=== PATIENT | female | born 1970 | race Hispanic/Latino ===

== ENCOUNTER 2020-05-04 10:35 | Observation (INO) | payer BC, OTHER ==
[2020-05-04 11:20] LABS: #Eosinphils 0.1 thou/uL (0.0-0.7); #Lymphocytes 1.4 thou/uL (1.20-3.40); #Monocytes 0.7 thou/uL (0.11-0.59); #Neutrophils 8.7 thou/uL (1.40-6.50); %Basophils 0.1 % (0.0-1.0); %Eosinophils 0.6 % (0.0-10.0); %Monocytes 6.4 % (0.0-10.0); %Neutrophils 79.9 % (42.0-75.0); Hemoglobin 15.3 g/dL (12.0-16.0); Mean Corpuscular HGB CONC 34.8 g/dL (32.0-36.0); Mean Corpuscular Hemoglobin 31.6 pg (27.0-31.0); Mean Platelet Volume 7.5 fL (7.4-10.4); Platelet Count 298 thou/uL (130-400); RBC Distribution Width 11.8 % (11.5-14.5); Red Blood Cell (RBC) Count 4.83 mill/uL (4.20-5.40); White Blood Cell (WBC) Count 10.9 thou/uL (4.8-10.8)
[2020-05-04 11:48] LABS: ALT (SGPT) 14 U/L (8-55); AST (SGOT) 12 U/L (5-34); Albumin 4.2 g/dL (3.5-5.0); Alkaline Phosphatase 81 U/L (40-110); Anion Gap 12 mmol/L (10-20); BUN (Urea Nitrogen) 8 mg/dL (9.8-20.1); Bilirubin, Total 0.7 mg/dL (0.2-1.2); Calc. Creatinine Clearance 0 mL/min (70-130); Calcium 9.2 mg/dL (7.8-10.44); Carbon Dioxide 26 mmol/L (22-29); Chloride 103 mmol/L (98-107); Estimated GFR-MDRD Greater than 90; Globulin 4.1 g/dL (2.4-3.5); Glucose 133 mg/dL (70-105); Lipase 10 U/L (8-78); Potassium 3.6 mmol/L (3.5-5.1); Protein, Total 8.3 g/dL (6.0-8.3); Sodium 137 mmol/L (136-145)
--- NOTE | 2020-05-04 11:51 | ULT ---
RIGHT UPPER QUADRANT ULTRASOUND CLINICAL HISTORY: Right upper quadrant pain for 2 days. COMPARISON: None FINDINGS: Liver:There is diffuse fatty liver. No focal lesion is demonstrated. Intrahepatic bile ducts: No intrahepatic or extrahepatic biliary dilation.; Common bile duct: 3.3 mm. Gallbladder: The gallbladder is distended with multiple stones in gallbladder sludge. No pericholecys tic fluid is evident. The gallbladder wall is mildly thickened. Mclain's sign:None Main portal vein:Patent with hepatopedal flow. Pancreas:Visualized pancreas appears normal. Right kidney: Right kidney measures 9.2 x 5.7 x 6.0 cm. No focal renal lesion or hydronephrosis. Additional findings: None. IMPRESSION: 1. Gallbladder distention with multiple stones and gallbladder wall thickening. No pericholecystic fl uid or sonographic Mclain sign is reported. Findings are equivocal by sonography for acute cholecystitis. If clinically indicated further evaluation with a HIDA scan may be helpful for evaluat ing cystic duct obstruction. 2. Fatty liver.
[2020-05-04] MEDS ORDERED: Ondansetron PF 4 MG/2 ML Vial ONE (11:54)
[2020-05-04 13:14] LABS: Bilirubin Negative (Negative); Blood, Urine Negative (Negative); Clarity Clear (Clear); Glucose, Urine (Dipstick) Normal (Negative); Ketone, Urine Trace mg/dL (Negative); Leukocyte Negative Leu/uL (Negative); Nitrite Negative (Negative); Protein, Urine (Dipstick) Negative (Neg-Trace); Specific Gravity, Urine 1.009 (1.002-1.036); Urobilinogen Normal mg/dL (Less than 2)
[2020-05-04 13:16] LABS: Pregnancy Test - Urine (BHCG) Negative (Negative); Pregu Control Background? CLEAR/WHITE (CLR/WHITE); Pregu Control Bar Appear? YES (CONTROL BAR); Specific Gravity 1.009 (1.002-1.036)
[2020-05-04] MEDS ORDERED: Morphine 2 MG/ML VIAL ONE (15:14)
--- NOTE | 2020-05-04 16:07 | NM ---
HEPATOBILIARY SCAN: HISTORY:Right upper quadrant abdominal pain. RADIOPHARMACEUTICAL: 4.7 mCi Technetium 99m Mebrofenin injected intravenously; patient was penetrated with 1.5 mcg of CCK IV 30 minutes prior to injection of radiopharmaceutical. Following one hour of imaging, the patient received 2 mg of IV morphine sulfate. An additional 30 minutes were acquired. FINDINGS: There is expected radiotracer accumulation within the liver from the blood pool with excretion of rad iotracer into the common bile duct and small bowel by 10 minutes. There is nonvisualization of the gallbladder by the 60 minute time obed. The patient was administered 2 mg of IV morphine an additiona l 30 minutes of imaging was performed. There is no visualization of the gallbladder at the completion of the 30 minute post morphine exam. IMPRESSION:Nonvisualization of the gallbladder is suspicious for acute cholecystitis. Findings called to Kimberly Garcia, family nurse practitioner at 4:00 PM on May 04, 2020.
[2020-05-04] MEDS ORDERED: Calcium Carbonate 500 MG ChewTAB PO PRN (19:52)
[2020-05-04] MEDS ORDERED: Dextrose 50% Abboject 50 ML SYRINGE SLOW IVP PRN (19:52)
[2020-05-04] MEDS ORDERED: Morphine 2 MG/ML VIAL SLOW IVP PRN (19:52)
[2020-05-04] MEDS ORDERED: hydrALAZINE 20 MG/ML VIAL SLOW IVP PRN (19:52)
[2020-05-04] MEDS ORDERED: Morphine 4 MG/ML VIAL SLOW IVP PRN (19:52)
[2020-05-04] MEDS ORDERED: Dextrose 5% in Water 1,000 ML IV PRN (19:52)
[2020-05-04] MEDS ORDERED: Ketorolac Tromethamine 30 MG/ML VIAL IVP PRN (19:52)
[2020-05-04] MEDS ORDERED: Promethazine HCl 25 MG/ML VIAL IM PRN (19:52)
[2020-05-04] MEDS ORDERED: Mag-Al 1200 mg/1200 mg/30 ML UDCUP PO PRN (19:52)
[2020-05-04 20:05] VITALS: BMI 30.7
[2020-05-04] MEDS: D5 1/2 NS w/20 mEq KCL 1,000 ML IV SCH (20:34)
[2020-05-04] MEDS: Famotidine/PF 20 mg/2ml Vial SLOW IVP SCH (20:34)
[2020-05-04] MEDS: Famotidine 20 MG TAB PO SCH (20:34)
[2020-05-04] MEDS: HYDROcodone/Acetaminophen 10/325 mg Tablet PO PRN (20:41)
[2020-05-05] MEDS: Ondansetron PF 4 MG/2 ML Vial IVP PRN ×2 (04:24→18:29)
[2020-05-05] MEDS: HYDROcodone/Acetaminophen 10/325 mg Tablet PO PRN (04:24)
[2020-05-05] MEDS: D5 1/2 NS w/20 mEq KCL 1,000 ML IV SCH ×3 (04:27→18:33)
[2020-05-05 07:36] LABS: SARS-CoV-2 NAA Rapid Test Not Detected (NotDetected)
[2020-05-05] MEDS: Famotidine/PF 20 mg/2ml Vial SLOW IVP SCH ×2 (08:06→21:19)
[2020-05-05] MEDS: Famotidine 20 MG TAB PO SCH ×2 (08:08→21:19)
[2020-05-05] MEDS ORDERED: Succinylcholine Chloride 20 MG/ML 10 ml SYRINGE FS ONE (10:34)
[2020-05-05] MEDS ORDERED: Rocuronium Bromide 10 MG/ML (10ML VIAL) ONE (10:34)
[2020-05-05] MEDS ORDERED: Glycopyrrolate 0.2 MG/ML 5 ML SYRINGE ONE (10:34)
[2020-05-05] MEDS ORDERED: PROPOFOL 200 MG/20 ML VIAL ONE (10:34)
[2020-05-05] MEDS ORDERED: Lidocaine 1% PF 5 ML VIAL ONE (10:34)
[2020-05-05] MEDS ORDERED: Ondansetron PF 4 MG/2 ML Vial ONE (10:34)
[2020-05-05] MEDS ORDERED: EPHEDRINE 25 MG/5 ML SYRINGE ONE (10:34)
[2020-05-05] MEDS ORDERED: Dexamethasone 20 MG/5 ML VIAL ONE (10:34)
[2020-05-05] MEDS ORDERED: Ondansetron HCl/PF 4 MG/2 ML Vial IVP PRN (12:18)
[2020-05-05] MEDS ORDERED: Meperidine HCl/PF 25 MG/ML VIAL SLOW IVP PRN (12:18)
[2020-05-05] MEDS ORDERED: Promethazine HCl 25 MG/ML VIAL IM PRN (12:18)
[2020-05-05] MEDS ORDERED: Promethazine HCl 25 MG/ML VIAL SLOW IVP PRN (12:18)
[2020-05-05] MEDS ORDERED: SUGAMMADEX SODIUM 200 MG/2 ML VIAL ONE (12:43)
[2020-05-05] MEDS ORDERED: Fentanyl 100 MCG/2 ML VIAL ONE (12:43)
[2020-05-05] MEDS ORDERED: Lidocaine 1% w/Epinephrine 1:100K 20 ML VIAL ONE (12:44)
[2020-05-05] MEDS ORDERED: Bupivacaine 0.25% HCL 30 ML VIAL ONE (12:44)
[2020-05-05] MEDS ORDERED: cefOXitin Sodium/Dextrose 2 GM/50 ML BAG ONE (12:54)
[2020-05-05] MEDS ORDERED: Famotidine/PF 20 mg/2ml Vial ONE (12:59)
[2020-05-05] MEDS ORDERED: Morphine 4 MG/ML VIAL ONE (14:54)
[2020-05-05] MEDS ORDERED: HYDROcodone/Acetaminophen 7.5/325 mg Tablet PO PRN (16:08)
--- NOTE | 2020-05-05 19:15 | OP ---
DATE OF PROCEDURE: 05/05/2020 PREOPERATIVE DIAGNOSIS: Acute cholecystitis. POSTOPERATIVE DIAGNOSIS: Acute cholecystitis. PROCEDURE PERFORMED: Laparoscopic cholecystectomy. ANESTHESIA: General. ESTIMATED BLOOD LOSS: Minimal. COMPLICATIONS: None. SPECIMEN: Gallbladder. FINDINGS: Acute cholecystitis. TECHNIQUE: The patient was taken to the operating room and laid supine on the operating room table. After general anesthetic was obtained, the abdomen was prepped and draped in a sterile fashion. A straight incision was made above the umbilicus. Cautery was used to dissect down to and score the fascia. Abdominal cavity was entered bluntly using a Earlene clamp. Holding stitch of PDS placed on each side of fascia. A Rola trocar was placed and high-flow pneumoperitoneum was obtained. Upper midline 5 mm port as well as two right upper quadrant 5 mm ports were placed under direct visualization. The patient had acute cholecystitis with distended gallbladder. The needle was used to decompress the gallbladder. This allowed it to be grasped by the right upper quadrant port site, and placed up over the liver. The peritoneum was taken down. There was a lot of adhesions of omentum to the lower gallbladder that were taken down using cautery. Dissection in the area of the cystic duct and cystic artery allowed delineation of these structures. The critical view was seen showing only the cystic duct and cystic artery branching medial to lateral. There were no other branching structures. Two clips were placed proximally on the cystic duct and one laterally. It was cut using laparoscopic scissors. Cystic artery was taken in the same way. Cautery was then used to dissect the gallbladder out of the gallbladder fossa. The gallbladder was placed in EndoCatch bag and brought out through the Rola. Due to the intense inflammatory reaction from the acute cholecystitis, there was some bleeding in the liver bed. This was controlled using cautery. Arline anti-bleeding starch was placed in the gallbladder bed using the laparoscopic applicators. All port sites were infiltrated using local anesthetic. All ports were removed under camera visualization. Pneumoperitoneum was let down. PDS was used to close the fascial defect below the umbilicus. All incisions were irrigated and closed using 4-0 Monocryl and Dermabond. The patient was en route to Recovery in stable condition. All instrument counts, needle counts, and lap counts were correct. Job ID: [id number]
--- NOTE | 2020-05-06 05:01 | HP ---
CHIEF COMPLAINT: Acute cholecystitis. HISTORY OF PRESENT ILLNESS: This is a 49-year-old female with a history of intermittent biliary colic. She has known previously she had gallstones. She was seen in the emergency department where ultrasound revealed gallstones, but no acute cholecystitis symptoms. She had intractable pain. A hepatobiliary scan was performed, which showed no uptake into the gallbladder. She is admitted to my service overnight. The patient notes that her pain is slightly improved this evening, associated with nausea, but no vomiting. No previous known history of gallstones, jaundice, or pancreatitis. PAST MEDICAL HISTORY: She denies. PAST SURGICAL HISTORY: Includes hip. MEDICATIONS: None. ALLERGIES: NO KNOWN DRUG ALLERGIES. SOCIAL HISTORY: No smoking or alcohol or other drugs. REVIEW OF SYSTEMS: Ten-system review of systems is otherwise negative unless described above. PHYSICAL EXAMINATION: HEENT: Sclerae are anicteric. Oropharynx clear. NECK: No lymphadenopathy. CHEST: Clear. HEART: Regular rate. ABDOMEN: Soft. Tender in the right upper quadrant with localized guarding without rebound. No abdominal or inguinal hernias. EXTREMITIES: No ischemia or edema to extremities. LABORATORY DATA: Liver function tests normal. Ultrasound, gallstones with normal common bile duct. Hepatobiliary scan, no uptake in the gallbladder. ASSESSMENT: Acute cholecystitis secondary to gallstones. PLAN: Laparoscopic cholecystectomy. Risks, benefits, and alternatives discussed. She gives consent. We will do this tomorrow. Job ID: [id number]
[2020-05-06 08:06] LABS: Hemoglobin 15.1 g/dL (12.0-16.0)
[2020-05-06] MEDS: Famotidine 20 MG TAB PO SCH (08:09)
[2020-05-06] MEDS: Famotidine/PF 20 mg/2ml Vial SLOW IVP SCH (08:11)
[2020-05-06] MEDS: D5 1/2 NS w/20 mEq KCL 1,000 ML IV SCH (10:00)
--- NOTE | 2020-05-06 10:19 | PDOC.GSPN ---
Surgery Progress Note: Subj - Subjective Narrative: Ms. Waddell is a 49 year old female who is post op day 1 from a cholecystectomy for acute cholecystitis secondary to known gallstones. She reports some mild abdominal soreness, rated at 3/10. She denies any nausea, vomiting, diarrhea, dysuria, fever, chills, shortness of breath. She is able to ambulate without difficulty. She is tolerating food and liquids well. No complaints currently. Surgery Progress Note: Obj - Vital signs Vital signs: Vital Signs - Most Recent Temp Pulse Resp BP Pulse Ox 99.7 F H 104 H 16 129/85 93 L 05/06/20 07:00 05/06/20 07:00 05/06/20 07:00 05/06/20 07:00 05/06/20 07:00 - Physical Exam General: no distress Cardiovascular: regular rate and rhythm Respiratory: clear to auscultation Abdomen: soft, non tender, positive bowel sounds Wound: healing well (4 small incision sites on the abdomen healing well with no erythema or drainage) Surgery Progress Note: Results - Labs Result Diagrams: 05/06/20 07:56 05/04/20 11:03 Lab results: Laboratory Results - last 24 hr 05/06/20 07:56 Hgb 15.1 Surgery Progress Note: A/P - Plan Plan: acute cholecystitis secondary to gall stones, s/p cholecystectomy: Patient's pain and nausea are improved post operatively. She is tolerating diet well. Will discharge home today. Will see her for follow up in the office in 2 weeks.
[2020-05-06 15:08] VITALS: BP 127/79; TEMP 98
--- NOTE | 2020-05-07 07:16 | DIS ---
DATE OF ADMISSION: 05/04/2020 DATE OF DISCHARGE: 05/06/2020 ADMIT DIAGNOSIS: Acute cholecystitis. DISCHARGE DIAGNOSIS: Acute cholecystitis. PROCEDURE: Laparoscopic cholecystectomy by Dr. Coe without complication. CONDITION ON DISCHARGE: Improved. STAFF: Nicholas Coe MD HOSPITAL COURSE: On postop day 1, the patient is doing well. She is ambulatory, tolerating diet. She is discharged home. Prescriptions for [place] and Zofran were sent to her pharmacy. She will follow up with me in 2 weeks. Job ID: [id number]
== END 2020-05-06 16:24 | disposition home or self-care (01) ==
LOC: ERS 10:35 → T4-B 16:57 → INTOOBSV 16:57
PROVIDERS: ADMIT Surgery; ATTEND Surgery
PROC: 0FT44ZZ Resection of Gallbladder, Percutaneous Endoscopic Approach (ICD-10-PCS; principal; 2020-05-05)
DX: K80.12 Calculus of gallbladder with acute and chronic cholecystitis without obstruction (principal); K76.0 Fatty (change of) liver, not elsewhere classified; R73.03 Prediabetes
CPT/HCPCS: 36415; 76705; 78227; 80053; 81003; 81025; 83690; 85018; 85025; 87635; 88304; 96361; 96374; 96376; A9537; G0378; J0694; J1100; J2270; J2405; J2704; J3010; J3480; S0020; S0028; U0002; U0003